=== PATIENT | male | born 1990 | race Hispanic/Latino ===

== ENCOUNTER → 2019-03-16 | Outpatient (CLI) | payer OTHER ==
--- NOTE | 2019-03-16 15:27 | REP ---
BILATERAL MAMMOGRAM AND ULTRASOUND: Bilateral mammogram performed in the MLO and CC projections. Reportedly, there is a longstanding history over 1 year of small palpable abnormalities in the bilateral retroareolar region about the size of a pea. The areas are marked on the skin with a triangular marker. Mild retroareolar ill-defined fibroglandular tissue is seen symmetrically bilaterally compatible with mild bilateral gynecomastia. No suspicious mass, architectural distortion or clustered microcalcifications are seen. Real-time sonographic evaluation of the retroareolar region is performed. Hypoechoic ill-defined tissue is seen correlating with the mammogram compatible with gynecomastia with no suspicious cystic or solid mass. IMPRESSION: BIRADS 2: BI-RADS/ACR category 2 mammogram. Benign Findings. ACR 2 benign. There are mammographic and sonographic findings of mild bilateral gynecomastia. No suspicious mass seen mammographically or sonographically. Clinical correlation and followup recommended. This mammogram was interpreted with the aid of an FDA-approved computer-aided detection system. A. Negative x-ray reports should not delay biopsy if a dominant or clinically suspicious mass is present. B. Four to eight percent of cancers are not identified by x-ray. C. Adenosis and dense breasts may obscure an underlying neoplasm. The patient states he had a clinical breast exam in February 2019. The patient letter being requested is M2 Electronically Signed by Tony Koo MD 03/16/2019 06:54 P
== END ==
LOC: M RAD 13:16
PROVIDERS: ATTEND Physician Assistant
DX: N62 Hypertrophy of breast (principal)

== ENCOUNTER → 2019-09-06 | Outpatient (REF) | payer OTHER ==
[2019-09-06 14:58] LABS: SEMEN APPEARANCE OPAQUE (OPAQUE); SEMEN VISCOSITY LIQUID (LIQUID); SEMEN VOLUME 6.5 ml (2.0-5.0)
[2019-09-06 14:59] LABS: WBC CONCENTRATION <=1 M/ml (<=1 M/ml)
== END ==
LOC: M LAB REF 14:25
PROVIDERS: ATTEND Obstetrics & Gynecology
DX: N46.8 Other male infertility (principal)

== ENCOUNTER → 2021-09-09 | Outpatient (CLI) | payer OTHER ==
[2021-09-09 14:27] LABS: PLATELET COUNT, AUTOMATED 259 10^3/uL (150-450)
[2021-09-09 14:42] LABS: INR 1.04
[2021-09-09 14:43] LABS: PARTIAL THROMBOPLASTIN TIME 27.7 SECONDS (25.9-37.0)
[2021-09-09 14:55] LABS: COLLAGEN EPINEPHRINE 101 SECONDS (74-162)
== END ==
LOC: M LAB 14:06
PROVIDERS: ATTEND Physical Medicine & Rehabilitation
DX: M51.17 Intervertebral disc disorders with radiculopathy, lumbosacral region (principal)